=== PATIENT | male | born 1985 | race African-American/Black ===

== ENCOUNTER 2016-10-23 01:47 | Emergency (ER) | payer SELFPAY ==
[~2016-10-23] VITALS: Ht 165.1 cm; Wt 82.0 kg
[~2016-10-23 01:47] MED LIST: IBUPROFEN600 MG PO; MEDROL DOSEPAK4 MG PO; PREDNISONE20 MG PO; ULTRAM50 MG PO
[2016-10-23 02:42] VITALS: BP 128/85
== END 2016-10-23 04:50 | disposition home or self-care (01) ==
LOC: EME 01:47
DX: S06.0X0A Concussion without loss of consciousness, initial encounter (principal); S00.01XA Abrasion of scalp, initial encounter; Y00.XXXA Assault by blunt object, initial encounter; F17.200 Nicotine dependence, unspecified, uncomplicated
CPT/HCPCS: 70450; 99281; 99284

== ENCOUNTER 2017-01-26 13:57 | Emergency (ER) | payer SELFPAY ==
[~2017-01-26] VITALS: Ht 165.1 cm; Wt 83.5 kg
[2017-01-26 17:30] VITALS: BP 123/86
[2017-01-27 14:37] LABS: CHLAMYDIA TRACHOMATIS NEGATIVE; NEISSERIA GONORRHOEAE NEGATIVE
== END 2017-01-26 17:31 | disposition home or self-care (01) ==
LOC: EME 13:57
DX: A64 Unspecified sexually transmitted disease (principal)
CPT/HCPCS: 87491; 87591; 99281; 99283; J0696

== ENCOUNTER 2017-05-22 23:43 | Emergency (ER) | payer SELFPAY ==
[~2017-05-22] VITALS: Ht 165.1 cm; Wt 80.8 kg
[2017-05-23 00:04] LABS: HEMATOCRIT 43.6 % (38.0-50.0); HEMOGLOBIN 13.8 G/DL (12.5-16.6); MCHC 31.7 G/DL (30.0-36.0); MCV 75.7 FL (86-99); PLATELET COUNT 339 K/uL (156-360); RBC DIS.WIDTH-CV 13.8 % (11.8-14.6); RBC DIS.WIDTH-SD 37.2 % (39-53); RED BLOOD COUNT 5.76 M/uL (4.00-5.50); WHITE BLOOD COUNT 15.2 K/uL (4.1-10.2)
[2017-05-23 00:20] LABS: ALBUMIN 4.8 g/dL (3.2-4.8)
[2017-05-23 00:21] LABS: CHLORIDE 105 mEq/L (99-109); POTASSIUM 3.9 mEq/L (3.7-5.4); SODIUM 144 mEq/L (136-147)
[2017-05-23 00:23] LABS: GLUCOSE 108 mg/dL (70-99); TOTAL PROTEIN 7.9 g/dL (6.4-8.3)
[2017-05-23 00:25] LABS: TOTAL BILIRUBIN 0.7 mg/dL (0.0-1.0)
[2017-05-23 00:26] LABS: ALKALINE PHOSPHATASE 67 IU/L (3-129)
[2017-05-23 00:27] LABS: CREATININE 1.1 mg/dL (0.6-1.3); GFR ESTIMATE (CALCULATED) > 59 mL/min/ (58.99-99999)
[2017-05-23 00:28] LABS: AST (GOT) 33 IU/L (2-34); UREA NITROGEN (BUN) 13 mg/dL (9-23)
[2017-05-23 00:30] LABS: ALT (GPT) 36 IU/L (3-49)
[2017-05-23 04:25] LABS: SOURCE URINE
[2017-05-23 04:30] LABS: APPEARANCE SL.HAZY ((CLEAR)); BILIRUBIN NEGATIVE; BLOOD NEGATIVE; COLOR YELLOW ((YELLOW)); GLUCOSE (STRIP) NEGATIVE; KETONES 5; LEUKOCYTES NEGATIVE; NITRITE NEGATIVE; PROTEIN (STRIP) 100; SPECIFIC GRAVITY 1.035 (1.000-1.030); UROBILINOGEN 0.2 MG/DL (0.2-1.0)
[2017-05-23] MEDS ORDERED: ZOFRAN ODT4 MG PO (04:55)
[2017-05-23 05:09] VITALS: BP 122/89
[2017-05-23 05:09] LABS: BACTERIA NONE SEEN /HPF; EPITHELIAL CELLS NONE SEEN /HPF; MUCUS 4+ /LPF; RED BLOOD CELLS 0-5 /HPF (0-5); UCUL ADDED? NO; WHITE BLOOD CELLS 0-5 /HPF (0-5)
[2017-05-24 13:40] LABS: CHLAMYDIA TRACHOMATIS NEGATIVE; NEISSERIA GONORRHOEAE NEGATIVE
== END 2017-05-23 05:11 | disposition home or self-care (01) ==
LOC: EME 23:43
PROVIDERS: Physician Assistant
DX: R11.2 Nausea with vomiting, unspecified (principal); R19.7 Diarrhea, unspecified; E86.0 Dehydration; F32.9 Major depressive disorder, single episode, unspecified
CPT/HCPCS: 80053; 81003; 85027; 87491; 87591; J2405; J7030

== ENCOUNTER 2017-05-25 23:24 | Emergency (ER) | payer SELFPAY ==
[~2017-05-25] VITALS: Ht 165.1 cm; Wt 84.3 kg
[~2017-05-25 23:24] MED LIST changes: +ZOFRAN ODT4 MG PO
[2017-05-26 02:48] LABS: SOURCE URINE
[2017-05-26 02:49] LABS: APPEARANCE SL.HAZY ((CLEAR)); BILIRUBIN NEGATIVE; BLOOD NEGATIVE; COLOR YELLOW ((YELLOW)); GLUCOSE (STRIP) NEGATIVE; KETONES NEGATIVE; LEUKOCYTES NEGATIVE; NITRITE NEGATIVE; PROTEIN (STRIP) 100; SPECIFIC GRAVITY 1.032 (1.000-1.030); UROBILINOGEN 0.2 MG/DL (0.2-1.0)
[2017-05-26 02:56] LABS: BACTERIA RARE /HPF; EPITHELIAL CELLS RARE /HPF; MUCUS 2+ /LPF; RED BLOOD CELLS 0-5 /HPF (0-5); UCUL ADDED? NO; WHITE BLOOD CELLS 0-5 /HPF (0-5)
[2017-05-26 03:45] VITALS: BP 138/62
[2017-05-26 12:24] LABS: CHLAMYDIA TRACHOMATIS NEGATIVE; NEISSERIA GONORRHOEAE NEGATIVE
== END 2017-05-26 03:56 | disposition home or self-care (01) ==
LOC: EME 23:24
PROVIDERS: Physician Assistant Medical
DX: R33.9 Retention of urine, unspecified (principal); Z20.2 Contact with and (suspected) exposure to infections with a predominantly sexual mode of transmission; F32.9 Major depressive disorder, single episode, unspecified
CPT/HCPCS: 81003; 87491; 87591; 99281; 99283; J0696

== ENCOUNTER 2017-08-17 13:48 | Emergency (ER) | payer SELFPAY ==
[~2017-08-17] VITALS: Ht 167.6 cm; Wt 85.2 kg
[2017-08-17 16:08] LABS: APPEARANCE CLEAR ((CLEAR)); BILIRUBIN NEGATIVE; BLOOD NEGATIVE; COLOR YELLOW ((YELLOW)); GLUCOSE (STRIP) NEGATIVE; KETONES NEGATIVE; LEUKOCYTES NEGATIVE; NITRITE NEGATIVE; PROTEIN (STRIP) 100; SPECIFIC GRAVITY 1.018 (1.000-1.030); UROBILINOGEN 0.2 MG/DL (0.2-1.0)
[2017-08-17 16:19] LABS: BACTERIA RARE /HPF; EPITHELIAL CELLS NONE SEEN /HPF; HYALINE CASTS 0-5 /LPF; MUCUS TRACE /LPF; RED BLOOD CELLS 0-5 /HPF (0-5); UCUL ADDED? NO; WHITE BLOOD CELLS 0-5 /HPF (0-5)
[2017-08-17 17:18] LABS: HEMOGLOBIN 13.4 G/DL (12.5-16.6); MCH 24.7 PG (29.0-34.0); MCHC 31.9 G/DL (30.0-36.0); MCV 77.3 FL (86-99); PLATELET COUNT 339 K/uL (156-360); RBC DIS.WIDTH-CV 13.6 % (11.8-14.6); RBC DIS.WIDTH-SD 38.3 % (39-53); RED BLOOD COUNT 5.43 M/uL (4.00-5.50); WHITE BLOOD COUNT 13.1 K/uL (4.1-10.2)
[2017-08-17 17:30] LABS: CHLORIDE 103 mEq/L (99-109); POTASSIUM 4.6 mEq/L (3.7-5.4); SODIUM 141 mEq/L (136-147)
[2017-08-17 17:32] LABS: GLUCOSE 83 mg/dL (70-99)
[2017-08-17 17:36] LABS: GFR ESTIMATE (CALCULATED) > 59 mL/min/ (58.99-99999)
[2017-08-17 17:37] LABS: UREA NITROGEN (BUN) 13 mg/dL (9-23)
[2017-08-17 18:10] VITALS: BP 171/103
== END 2017-08-17 18:11 | disposition home or self-care (01) ==
LOC: EME 13:48
PROVIDERS: Physician Assistant
DX: R30.0 Dysuria (principal); R80.9 Proteinuria, unspecified; F32.9 Major depressive disorder, single episode, unspecified
CPT/HCPCS: 80048; 81003; 85027; 87491; 87591; 99281; 99284